=== PATIENT | female | born 1980 | race Caucasian/White ===

== ENCOUNTER → 2016-06-06 | Outpatient (CLI) | payer OTHER ==
[~2016-06-06] MED LIST: CHOL4POW4 PO; DOCU10CA PO; IBUP80TA PO; LABE10TAB PO; OXYC-208 PO; STUACAP PO
[2016-06-06 17:32] LABS: MAGNESIUM LEVEL 2.2 MG/DL (1.8-2.4)
== END ==
LOC: M WUC 12:20
PROVIDERS: ATTEND Internal Medicine Gastroenterology
DX: K21.9 Gastro-esophageal reflux disease without esophagitis (principal); E55.9 Vitamin D deficiency, unspecified; R07.89 Other chest pain

== ENCOUNTER → 2016-06-21 | Day surgery (SDC) | payer OTHER ==
[~2016-06-21] VITALS: Ht 165.1 cm; Wt 64.4 kg
[~2016-06-21] MED LIST changes: +ALBU17IN INH; +COLE1TAB PO; +CYCLOPENTOLATE 2% OPHTH SOLN As Ordered ONE; +IBUP800T23 PO; +IBUPROFEN 800 MG TAB PO SCH; +KETOROLAC 60 MG/2 ML VIAL (J1885) As Ordered ONE; +LIDOCAINE 2% INJ 100 MG/5 ML SDV (FOR ANES.) As Ordered ONE; +LR 1,000 ML IV SCH; +METOCLOPRAMIDE INJ 10MG/2ML VIAL (J2765) As Ordered ONE; +METOCLOPRAMIDE INJ 10MG/2ML VIAL (J2765) IV PRN; +MIDAZOLAM INJ 2 MG/2 ML VIAL (J2250) As Ordered ONE; +NEXI20CA PO; +OFLOXACIN 0.3 % (OCUFLOX) OPTH SOL 5ML As Ordered ONE; +ONDANSETRON 4MG/2ML VIAL (J2405) As Ordered ONE; +ONDANSETRON 4MG/2ML VIAL (J2405) IV PRN; +PHENYLEPHRINE 2.5% OPHTH SOL 2ML As Ordered ONE; +PROPOFOL 200 MG/20 ML VIAL As Ordered ONE; +RELP40TA PO; +TROPICAMIDE 1% OPHTH SOLN 2 ML As Ordered ONE; +VITA100037 PO; +dexameTHASONE 4 MG/ML 1ML VIAL (J1100) As Ordered ONE; +fentaNYL 100 MCG/2 ML INJECTION (J3010) As Ordered ONE; +fentaNYL 100 MCG/2 ML INJECTION (J3010) IV PRN
[2016-06-21 06:31] LABS: MEAN CORPUSCULAR HEMOGLOBIN 31.7 pg (27.0-33.0); MEAN CORPUSCULAR HGB CONC 35.1 g/dl (32.0-36.5); MEAN CORPUSCULAR VOLUME 90.3 fl (80.0-96.0); RED CELL DISTRIBUTION WIDTH 12.1 % (11.5-14.5); WHITE BLOOD COUNT 4.4 K/mm3 (4.0-10.0)
[2016-06-21 06:41] LABS: CONTROL LINE HCG INT CTR LINE PRESENT
[2016-06-21 09:45] VITALS: BP 145/91
--- NOTE | 2016-06-21 10:03 | RO ---
DATE OF PROCEDURE: 06/21/2016 Jagruti is a 35-year-old female with a history of menorrhagia. After counseling in the office, a decision was made for dilation and curettage (D and C), hysteroscopy, and a NovaSure ablation. PREOPERATIVE DIAGNOSIS: Menorrhagia. POSTOPERATIVE DIAGNOSIS: Menorrhagia. PROCEDURES: 1. D and C. 2. Hysteroscopy. 3. NovaSure endometrial ablation. ANESTHESIA: General. SURGEON: Luis Ku DO COMPLICATIONS: None. ESTIMATED BLOOD LOSS: Less than 50 mL. SPECIMEN SENT TO THE LABORATORY: Endometrial curettings. DESCRIPTION OF PROCEDURE: After obtaining informed consent, the patient was taken to the operating room, where under general anesthesia she was then draped and prepped in the usual sterile fashion. The bladder was performed for approximately 200 mL of clear urine. We then placed a weighted speculum in the posterior fornix of the vagina. Using a Stein retractor, the anterior lip of the cervix then grasped with a single-tooth tenaculum. The uterus was sounded to approximately 10 cm size, giving a cavity length of 6.5. The cervix was then serially dilated. The hysteroscope was inserted. Bilateral tubal ostia visualized. No evidence of friable fibroid noted. The hysteroscope was removed. A sharp curettage of the endometrial lining was then done. The NovaSure endometrial ablator was adjusted to 4.5. At this point, a cavity test was performed. After passing the cavity test, the endometrial ablation device was enabled, and the endometrial ablation process lasted approximately 1 minute. Good ablative process noted. The patient tolerated the procedure well. She was then transferred to recovery room in stable condition. EVERARDO
== END | disposition home or self-care (01) ==
LOC: M SDC 05:53
PROVIDERS: ATTEND Obstetrics & Gynecology
DX: N92.0 Excessive and frequent menstruation with regular cycle (principal); K21.9 Gastro-esophageal reflux disease without esophagitis; J45.909 Unspecified asthma, uncomplicated; Z88.0 Allergy status to penicillin; Z88.8 Allergy status to other drugs, medicaments and biological substances; Z79.899 Other long term (current) drug therapy
CPT/HCPCS: 36415; 58563; 84703; 85027; 86850; 86900; 86901; 88305; C2618; J1100; J1885; J2250; J2405; J2765; J3010

== ENCOUNTER → 2016-08-24 | Outpatient (CLI) | payer OTHER ==
[~2016-08-24] MED LIST changes: -CYCLOPENTOLATE 2% OPHTH SOLN As Ordered ONE; -IBUPROFEN 800 MG TAB PO SCH; -KETOROLAC 60 MG/2 ML VIAL (J1885) As Ordered ONE; -LIDOCAINE 2% INJ 100 MG/5 ML SDV (FOR ANES.) As Ordered ONE; -LR 1,000 ML IV SCH; -METOCLOPRAMIDE INJ 10MG/2ML VIAL (J2765) As Ordered ONE; -METOCLOPRAMIDE INJ 10MG/2ML VIAL (J2765) IV PRN; -MIDAZOLAM INJ 2 MG/2 ML VIAL (J2250) As Ordered ONE; -OFLOXACIN 0.3 % (OCUFLOX) OPTH SOL 5ML As Ordered ONE; -ONDANSETRON 4MG/2ML VIAL (J2405) As Ordered ONE; -ONDANSETRON 4MG/2ML VIAL (J2405) IV PRN; -PHENYLEPHRINE 2.5% OPHTH SOL 2ML As Ordered ONE; -PROPOFOL 200 MG/20 ML VIAL As Ordered ONE; -TROPICAMIDE 1% OPHTH SOLN 2 ML As Ordered ONE; -dexameTHASONE 4 MG/ML 1ML VIAL (J1100) As Ordered ONE; -fentaNYL 100 MCG/2 ML INJECTION (J3010) As Ordered ONE; -fentaNYL 100 MCG/2 ML INJECTION (J3010) IV PRN
[2016-08-24 12:45] LABS: BASO % 0.3 % (0.0-1.0); EOS # 0.1 K/mm3 (0.0-0.50); EOS % 1.9 % (0.0-3.0); LARGE UNSTAINED CELL # 0.1 K/mm3 (0.0-0.4); LYMPH # 1.3 K/mm3 (1.5-4.5); LYMPH % 26.5 % (24.0-44.0); MEAN CORPUSCULAR HEMOGLOBIN 29.9 pg (27.0-33.0); MEAN CORPUSCULAR HGB CONC 32.5 g/dl (32.0-36.5); MEAN CORPUSCULAR VOLUME 91.9 fl (80.0-96.0); MONO # 0.3 K/mm3 (0.0-0.8); MONO % 5.6 % (0.0-5.0); NEUTROPHILS % 63.7 % (36.0-66.0); PLATELET COUNT, AUTOMATED 182 k/mm3 (150-450); RED CELL DISTRIBUTION WIDTH 12.2 % (11.5-14.5); WHITE BLOOD COUNT 4.8 K/mm3 (4.0-10.0)
[2016-08-24 13:04] LABS: FOLATE 17.5 NG/ML
[2016-08-24 13:05] LABS: ALBUMIN 3.9 GM/DL (3.2-5.2); ALBUMIN/GLOBULIN RATIO 1.26 (1.00-1.93); ALKALINE PHOSPHATASE 103 U/L (45-117); ALT/SGPT 17 U/L (12-78); ANION GAP 7 MEQ/L (8-16); AST/SGOT 14 U/L (15-37); BILIRUBIN,TOTAL 0.6 MG/DL (0.2-1.0); BLOOD UREA NITROGEN 17 MG/DL (7-18); CALCIUM LEVEL 8.5 MG/DL (8.5-10.1); CARBON DIOXIDE LEVEL 23 MEQ/L (21-32); CHLORIDE LEVEL 109 MEQ/L (98-107); CHOLESTEROL LEVEL 149 MG/DL (<200); CREATININE FOR GFR 0.78 MG/DL (0.55-1.02); FREE T4 1.12 NG/DL (0.76-1.46); GLOMERULAR FILTRATION RATE > 60.0 (>60); GLUCOSE, FASTING 84 MG/DL (70-105); POTASSIUM SERUM 4.2 MEQ/L (3.5-5.1); SODIUM LEVEL 139 MEQ/L (136-145); TRIGLYCERIDES LEVEL 51 MG/DL (<150)
[2016-08-24 13:27] LABS: VITAMIN B12 LEVEL 628 PG/ML
== END ==
LOC: M WUC 08:37
PROVIDERS: ATTEND Emergency Medicine
DX: R63.5 Abnormal weight gain (principal); R53.83 Other fatigue; E04.9 Nontoxic goiter, unspecified

== ENCOUNTER → 2016-09-28 | Outpatient (REF) | payer OTHER | LOC: M LAB REF 16:44 | PROVIDERS: ATTEND Obstetrics & Gynecology | DX: N64.4 Mastodynia (principal) ==

== ENCOUNTER → 2016-11-23 | Outpatient (REF) | payer OTHER ==
[~2016-11-23] MED LIST changes: +CLIN150C14 PO; +IBUP1TAB7 PO; -IBUP800T23 PO; -VITA100037 PO; +VITA100067 PO
== END ==
LOC: M LAB REF 10:07
PROVIDERS: ATTEND Physician Assistant
DX: R30.0 Dysuria (principal)

== ENCOUNTER → 2016-12-27 | Outpatient (CLI) | payer OTHER | LOC: M WUC 12:24 | PROVIDERS: ATTEND Internal Medicine Gastroenterology | DX: E55.9 Vitamin D deficiency, unspecified (principal) ==

== ENCOUNTER 2017-02-11 17:33 | Emergency (ER) | payer OTHER ==
[~2017-02-11] VITALS: Ht 167.6 cm; Wt 67.3 kg
[~2017-02-11 17:33] MED LIST changes: -CLIN150C14 PO
[2017-02-11] MEDS ORDERED: CLIN150C14 PO ×2 (17:51→21:38)
[2017-02-11] MEDS ORDERED: ISOVUE-370 76% 100ML VIAL (Q9967) As Ordered ONE (19:46)
[2017-02-11 20:57] LABS: BASO % 0.3 % (0.0-1.0); EOS # 0.1 K/mm3 (0.0-0.50); EOS % 0.8 % (0.0-3.0); LARGE UNSTAINED CELL # 0.2 K/mm3 (0.0-0.4); LARGE UNSTAINED CELL % 2.1 % (0.0-4.0); LYMPH # 2.4 K/mm3 (1.5-4.5); LYMPH % 29.1 % (24.0-44.0); MEAN CORPUSCULAR HEMOGLOBIN 32.5 pg (27.0-33.0); MEAN CORPUSCULAR HGB CONC 35.6 g/dl (32.0-36.5); MEAN CORPUSCULAR VOLUME 91.3 fl (80.0-96.0); MONO # 0.4 K/mm3 (0.0-0.8); MONO % 5.3 % (0.0-5.0); NEUTROPHILS # 5.1 K/mm3 (1.8-7.7); NEUTROPHILS % 62.4 % (36.0-66.0); PLATELET COUNT, AUTOMATED 218 k/mm3 (150-450); RED CELL DISTRIBUTION WIDTH 12.1 % (11.5-14.5); WHITE BLOOD COUNT 8.1 K/mm3 (4.0-10.0)
--- NOTE | 2017-02-11 21:10 | REPUSA ---
HISTORY: RECENT LT ORAL SURGERY, R/O ODONTOGENIC INFECTION.. TECHNIQUE: Axial CT imaging of maxillofacial structures with sagittal and coronal reformatted imaging , with intravenous contrast enhancement. DLP= 454.7 mGy-cm. FINDINGS: There has been a tooth extraction of the left first molar tooth in the maxilla where there is soft tissue swelling and soft tissue gas consistent with postsurgical change and possible soft tis rogelio infection cannot be excluded at the surgical site. Clinical correlation is suggested. There is also 3 mm air-fluid level in the left maxillary sinus. There are multiple other tooth extractions from the mandible without acute bony abnormality identifie d in the mandible. No other facial bone abnormality is seen. No other soft tissue mass lesions or a bnormal fluid collections are seen. IMPRESSION: 1. There is soft tissue swelling with soft tissue emphysema seen at the site of dental e xtraction of the left first molar tooth from the maxilla and there is also 3 mm air-fluid level in th e left maxillary sinus in which infectious etiology cannot be excluded at this time. Clinical correl ation and follow-up may be warranted as clinically indicated. 2. No other acute facial bone abnormality is seen at this time.
[2017-02-11 21:52] VITALS: BP 120/81
== END 2017-02-11 21:58 | disposition home or self-care (01) ==
LOC: M ED 17:33
DX: J01.00 Acute maxillary sinusitis, unspecified (principal); K21.9 Gastro-esophageal reflux disease without esophagitis; Z90.49 Acquired absence of other specified parts of digestive tract
CPT/HCPCS: 36415; 70487; 85025; 85652; 86140; 87070; 99284; Q9967

== ENCOUNTER → 2018-03-13 | Outpatient (CLI) | payer OTHER | LOC: M ADAMS 18:14 | DX: M25.532 Pain in left wrist (principal) | CPT/HCPCS: 73110 ==

== ENCOUNTER → 2018-03-27 | Outpatient (REF) | payer OTHER ==
[2018-03-27 20:02] LABS: FOLATE 21.9 NG/ML; TOTAL 25(OH) VITAMIN D 26.4 NG/ML (30.0-100.0)
== END ==
LOC: M LAB REF 18:52
DX: R53.83 Other fatigue (principal)
CPT/HCPCS: 82746

== ENCOUNTER → 2018-03-28 | Outpatient (REF) | payer OTHER ==
[2018-03-28 19:24] LABS: BASO % 0.4 % (0.0-1.0); EOS # 0.1 10^3/uL (0.0-0.50); EOS % 1.4 % (0.0-3.0); HEMATOCRIT 39.9 % (36.0-47.0); HEMOGLOBIN 13.7 g/dl (12.0-15.5); LYMPH # 2.5 10^3/uL (1.5-4.5); LYMPH % 32.4 % (24.0-44.0); MEAN CORPUSCULAR HEMOGLOBIN 31.6 pg (27.0-33.0); MEAN CORPUSCULAR HGB CONC 34.3 g/dl (32.0-36.5); MEAN CORPUSCULAR VOLUME 92.1 fl (80.0-96.0); MONO # 0.7 10^3/uL (0.0-0.8); MONO % 8.7 % (0.0-5.0); NEUTROPHILS # 4.4 10^3/uL (1.8-7.7); NEUTROPHILS % 57.1 % (36.0-66.0); PLATELET COUNT, AUTOMATED 243 10^3/uL (150-450); RED BLOOD COUNT 4.33 10^6/uL (4.00-5.40); RED CELL DISTRIBUTION WIDTH 11.9 % (11.5-14.5); WHITE BLOOD COUNT 7.6 10^3/uL (4.0-10.0)
[2018-03-28 19:42] LABS: ALBUMIN/GLOBULIN RATIO 1.25 (1.00-1.93); ALKALINE PHOSPHATASE 127 U/L (45-117); ALT/SGPT 19 U/L (12-78); ANION GAP 6 MEQ/L (8-16); AST/SGOT 13 U/L (7-37); BILIRUBIN,TOTAL 0.3 MG/DL (0.2-1.0); BLOOD UREA NITROGEN 14 MG/DL (7-18); CALCIUM LEVEL 8.7 MG/DL (8.5-10.1); CARBON DIOXIDE LEVEL 27 MEQ/L (21-32); CHLORIDE LEVEL 106 MEQ/L (98-107); CHOLESTEROL LEVEL 144 MG/DL (<200); CHOLESTEROL RISK RATIO 2.526 (<5); CREATININE FOR GFR 0.72 MG/DL (0.55-1.30); GLOMERULAR FILTRATION RATE > 60.0 (>60); GLUCOSE, FASTING 83 MG/DL (70-100); HDL CHOLESTEROL 57 MG/DL (>40); LDL CHOLESTEROL 65 MG/DL (<100); MAGNESIUM LEVEL 2.2 MG/DL (1.8-2.4); NON-HDL-C 87 MG/DL; POTASSIUM SERUM 4.1 MEQ/L (3.5-5.1); SODIUM LEVEL 139 MEQ/L (136-145); THYROID STIMULATING HORMONE 0.815 uIU/ML (0.358-3.740); TOTAL PROTEIN 7.2 GM/DL (6.4-8.2); TRIGLYCERIDES LEVEL 112 MG/DL (<150)
== END ==
LOC: M LABDRWAD 19:15
DX: R53.83 Other fatigue (principal)

== ENCOUNTER → 2018-06-03 | Outpatient (REF) | payer OTHER ==
[~2018-06-03] MED LIST changes: +CLIN150C14 PO
== END ==
LOC: M LAB REF 12:20
PROVIDERS: ATTEND Physician Assistant
DX: J02.9 Acute pharyngitis, unspecified (principal)

== ENCOUNTER → 2018-06-27 | Outpatient (CLI) | payer OTHER ==
[2018-06-27 14:18] LABS: C REACTIVE PROTEIN QUANTITATIV < 0.30 MG/DL (0.00-0.30); RHEUMATOID FACTOR QUANT < 10.0 IU/ML (<15.0)
[2018-06-29 14:27] LABS: ANTINUCLEAR ANTIBODIES DIRECT Negative (Negative); Lyme Disease IgG/IgM Antibodie <0.91 ISR (0.00-0.90); Lyme Disease IgM Ab Quantitati <0.80 index (0.00-0.79)
== END ==
LOC: M WUC 12:15
PROVIDERS: ATTEND Physician Assistant
DX: G89.4 Chronic pain syndrome (principal)

== ENCOUNTER → 2018-07-12 | Outpatient (CLI) | payer OTHER ==
[2018-07-12 14:47] LABS: FREE T4 1.09 NG/DL (0.76-1.46); THYROID STIMULATING HORMONE 0.841 uIU/ML (0.358-3.740)
[2018-07-12 14:49] LABS: FOLATE 12.9 NG/ML
[2018-07-12 15:14] LABS: HEMOGLOBIN A1c 5.1 %
== END ==
LOC: M WUC 12:18
PROVIDERS: ATTEND Psychiatry & Neurology Neurology
DX: G70.00 Myasthenia gravis without (acute) exacerbation (principal); R20.2 Paresthesia of skin; M62.81 Muscle weakness (generalized); E07.9 Disorder of thyroid, unspecified

== ENCOUNTER → 2018-07-12 | Outpatient (CLI) | payer OTHER ==
[2018-07-12 14:38] LABS: BLOOD UREA NITROGEN 15 MG/DL (7-18); CALCIUM LEVEL 8.6 MG/DL (8.5-10.1); CARBON DIOXIDE LEVEL 29 MEQ/L (21-32); CHLORIDE LEVEL 103 MEQ/L (98-107); CREATININE FOR GFR 0.73 MG/DL (0.55-1.30); GLOMERULAR FILTRATION RATE > 60.0 (>60); GLUCOSE, FASTING 66 MG/DL (70-100); MAGNESIUM LEVEL 2.2 MG/DL (1.8-2.4); POTASSIUM SERUM 4.3 MEQ/L (3.5-5.1); SODIUM LEVEL 138 MEQ/L (136-145)
[2018-07-12 14:49] LABS: TOTAL 25(OH) VITAMIN D 30.6 NG/ML (30.0-100.0); VITAMIN B12 LEVEL 1199 PG/ML (247-911)
== END ==
LOC: M WUC 12:12
PROVIDERS: ATTEND Internal Medicine Gastroenterology
DX: R19.7 Diarrhea, unspecified (principal); K58.0 Irritable bowel syndrome with diarrhea; K90.41 Non-celiac gluten sensitivity; K44.9 Diaphragmatic hernia without obstruction or gangrene; E55.9 Vitamin D deficiency, unspecified

== ENCOUNTER → 2018-09-26 | Outpatient (CLI) | payer OTHER ==
--- NOTE | 2018-09-26 16:24 | REP ---
MAXILLOFACIAL CT WITHOUT CONTRAST: HISTORY: Chronic maxillary sinusitis. Minimal mucosal thickening is present in the left maxillary sinus. The remaining sinuses are clear. The ostiomeatal units are patent. The middle and inferior nasal turbinates are partially paradoxical. There is mild deviation of the nasal septum to the left. A spur is present arising from the left side of the nasal septum. The spur abuts the left middle nasal turbinate. The cribriform plate, medial beltran of the orbits and optic canals are intact. The carotid canals form a segment of the posterolateral beltran of the sphenoid sinus. The sphenoid sinus septa insert into the internal carotid canal beltran. IMPRESSION: Sinus mucosal thickening as described above. Electronically Signed by Harpal Dean MD 09/26/2018 04:34 P
== END ==
LOC: M RAD 15:38
PROVIDERS: ATTEND Otolaryngology
DX: J34.89 Other specified disorders of nose and nasal sinuses (principal)

== ENCOUNTER → 2018-12-27 | Outpatient (REF) | payer OTHER ==
[2018-12-27 12:59] LABS: HEMOGLOBIN A1c 5.4 %
[2018-12-27 13:12] LABS: ALBUMIN 3.9 GM/DL (3.2-5.2); ALT/SGPT 22 U/L (12-78); BILIRUBIN,TOTAL 0.7 MG/DL (0.2-1.0); BLOOD UREA NITROGEN 15 MG/DL (7-18); CALCIUM LEVEL 8.9 MG/DL (8.5-10.1); CARBON DIOXIDE LEVEL 27 MEQ/L (21-32); CHLORIDE LEVEL 105 MEQ/L (98-107); CREATININE FOR GFR 0.77 MG/DL (0.55-1.30); GLOMERULAR FILTRATION RATE > 60.0 (>60); GLUCOSE, FASTING 77 MG/DL (70-100); POTASSIUM SERUM 4.5 MEQ/L (3.5-5.1); SODIUM LEVEL 138 MEQ/L (136-145); TOTAL PROTEIN 7.3 GM/DL (6.4-8.2)
== END ==
LOC: M LABDRAW1 08:23
PROVIDERS: ATTEND Physician Assistant
DX: R42 Dizziness and giddiness (principal)

== ENCOUNTER 2019-02-20 11:00 | Day surgery (SDC) | payer OTHER ==
[~2019-02-20] VITALS: Ht 165.1 cm; Wt 65.8 kg
[~2019-02-20 11:00] MED LIST changes: +CHOL100029 PO; +LR 1,000 ML IV ONE; +VENTAER INH; +dexameTHASONE 4 MG/ML 1ML VIAL (J1100) IV ONE
[2019-02-20] MEDS ORDERED: LIDOCAINE W/EPINEPHRINE 1% 20ML VIAL As Ordered ONE ×2 (13:47→13:48)
[2019-02-20] MEDS ORDERED: EPINEPHrine 1MG/ML INJ 30ML MD-VIAL As Ordered ONE (13:48)
[2019-02-20] MEDS ORDERED: SCOPOLAMINE 1MG TRANSDERMAL PATCH As Ordered ONE (14:06)
[2019-02-20] MEDS ORDERED: SODIUM CHLORIDE 0.9% NASAL GEL 15GM (AYR) As Ordered ONE (14:25)
[2019-02-20] MEDS ORDERED: METOCLOPRAMIDE INJ 10MG/2ML VIAL (J2765) As Ordered ONE (14:44)
[2019-02-20] MEDS ORDERED: MIDAZOLAM INJ 2 MG/2 ML VIAL (J2250) As Ordered ONE (14:44)
[2019-02-20] MEDS ORDERED: LIDOCAINE 2% INJ 100 MG/5 ML SDV (FOR ANES.) As Ordered ONE (14:44)
[2019-02-20] MEDS ORDERED: fentaNYL 250 MCG/5 ML INJECTION (J3010) As Ordered ONE (14:44)
[2019-02-20] MEDS ORDERED: SUGAMMADEX SODIUM 500 MG/5 ML VIAL (BRIDION) As Ordered ONE (14:44)
[2019-02-20] MEDS ORDERED: ONDANSETRON 4MG/2ML VIAL (J2405) As Ordered ONE (14:44)
[2019-02-20] MEDS ORDERED: ePHEDrine SULFATE 25 MG/5 ML(5MG/ML) SYRINGE As Ordered ONE (14:44)
[2019-02-20] MEDS ORDERED: ROCURONIUM BROMIDE 50 MG/5 ML VIAL As Ordered ONE (14:44)
[2019-02-20] MEDS ORDERED: dexameTHASONE 4 MG/ML 1ML VIAL (J1100) As Ordered ONE (14:44)
[2019-02-20] MEDS ORDERED: PROPOFOL 200 MG/20 ML VIAL As Ordered ONE (14:44)
[2019-02-20] MEDS: METHYLENE BLUE 0.5% (5MG/ML) 10 ML AMP (PROVAYBLUE)(Q9968 PER 1MG) As Ordered ONE ×2 (14:45→15:15)
[2019-02-20] MEDS ORDERED: SCOPOLAMINE 1MG TRANSDERMAL PATCH TOP ONE (15:00)
[2019-02-20] MEDS ORDERED: ONDANSETRON 4MG/2ML VIAL (J2405) IV PRN (16:00)
[2019-02-20] MEDS ORDERED: HYDROMORPHONE HCL 0.5 MG/ 0.5 ML SYRINGE (J1170 PER 1) IV PRN (16:00)
[2019-02-20] MEDS ORDERED: oxyCODONE 5MG TAB PO PRN (16:00)
[2019-02-20] MEDS ORDERED: fentaNYL 100 MCG/2 ML INJECTION (J3010) IV PRN (16:00)
[2019-02-20] MEDS ORDERED: PROMETHAZINE INJ 25 MG/ML VIAL (J2550) IV PRN (16:00)
[2019-02-20] MEDS ORDERED: METOCLOPRAMIDE INJ 10MG/2ML VIAL (J2765) IV PRN (16:00)
[2019-02-20 17:00] VITALS: BP 133/84
== END 2019-02-20 17:11 | disposition home or self-care (01) ==
LOC: M SDC 11:00
PROVIDERS: ATTEND Otolaryngology
DX: J34.2 Deviated nasal septum (principal); K21.9 Gastro-esophageal reflux disease without esophagitis; J45.909 Unspecified asthma, uncomplicated; G43.909 Migraine, unspecified, not intractable, without status migrainosus; Z79.51 Long term (current) use of inhaled steroids; Z79.899 Other long term (current) drug therapy; Z88.0 Allergy status to penicillin; Z88.8 Allergy status to other drugs, medicaments and biological substances
CPT/HCPCS: 30520; 88300; J1100; J2250; J2405; J2765; J3010; Q9968

== ENCOUNTER → 2019-08-19 | Outpatient (CLI) | payer OTHER ==
[~2019-08-19] MED LIST changes: -LR 1,000 ML IV ONE; -dexameTHASONE 4 MG/ML 1ML VIAL (J1100) IV ONE
[2019-08-19 12:12] LABS: INFLUENZA A AMPLIFICATION NEGATIVE (NEGATIVE); INFLUENZA B AMPLIFICATION NEGATIVE (NEGATIVE)
== END ==
LOC: M LABSMTC 10:40
PROVIDERS: ATTEND Family Medicine
DX: Z11.59 Encounter for screening for other viral diseases (principal); Z20.828 Contact with and (suspected) exposure to other viral communicable diseases
CPT/HCPCS: 87502; U0002

== ENCOUNTER → 2020-03-29 | Outpatient (CLI) | payer OTHER ==
--- NOTE | 2020-03-29 14:18 | REP ---
INDICATION: CHRONIC MAX SINUSITIS, PRIOR SEPTOPLASTY WITH BRAIN LAB. COMPARISON: Comparison maxillofacial CT study September 26, 2018.. TECHNIQUE: Helical scanning is acquired and 2 mm axial images re-formatted. Coronal MPR images are generated and reviewed. FINDINGS: There are air-fluid levels in the maxillary sinuses bilaterally, right a little larger than left. There is mucosal thickening inferiorly in the maxillary sinus on the right and to a lesser extent on the left. The mucosal thickening is new and the air-fluid level was only present on the left previously. There is partial opacification of the ethmoid air cells bilaterally which also is new compared to the prior study. Frontal sinuses are clear. Sphenoid sinuses demonstrate minimal mucosal thickening today on the left. Mastoid aeration is normal and symmetric. Bony sinus margins are intact. The bony nasal septum is midline. No nasal polyp is seen. There is mucosal thickening obscuring the ostium and infundibulum of the left OMC. The right OMC is patent although there is a tiny amount of mucosal thickening in the infundibulum and ostium. IMPRESSION: Paranasal sinus mucosal changes as above. Maxillary and ethmoid air cell involvement. The left OMC is obscured by mucosal thickening. <Electronically signed by Aram Mei > 03/29/20 [id number]
== END ==
LOC: M RAD 13:10
PROVIDERS: ATTEND Otolaryngology
DX: J32.0 Chronic maxillary sinusitis (principal)

== ENCOUNTER → 2020-04-20 | Outpatient (CLI) | payer OTHER ==
--- NOTE | 2020-04-20 10:31 | REP ---
INDICATION: GERD COMPARISON: None. TECHNIQUE: Real time marx scale ultrasound examination using curved array transducer along with limited color Doppler evaluation of the portal vein. FINDINGS: Liver is normal in contour, size, and echogenicity without focal hepatic lesions identified. Doppler interrogation demonstrates normal main portal vein characteristics including normal flow direction, wave pattern, and velocity at 31 cm/sec. Pancreas is incompletely evaluated due to interposed bowel gas. The gallbladder is surgically absent. No biliary ductal dilatation is appreciated and the common bile duct measures 4.0 mm diameter. Right kidney is normal in reniform shape without hydronephrosis and measures 9.8 x 5.3 x 3.6 cm. No ascites in the visualized right upper quadrant. IMPRESSION: Essentially normal right upper quadrant/liver ultrasound. Evidence for prior cholecystectomy. <Electronically signed by Betito Wang > 04/20/20 [id number]
== END ==
LOC: M RAD 09:44
PROVIDERS: ATTEND Nurse Practitioner Family
DX: K21.9 Gastro-esophageal reflux disease without esophagitis (principal); K44.9 Diaphragmatic hernia without obstruction or gangrene

== ENCOUNTER → 2020-06-23 | Outpatient (REF) | payer OTHER ==
[~2020-06-23] MED LIST changes: -CLIN150C14 PO; +CLIN150C15 PO
[2020-06-23 14:30] LABS: INR 0.92; PROTHROMBIN TIME 12.6 SECONDS (12.5-14.3)
[2020-06-23 14:31] LABS: PARTIAL THROMBOPLASTIN TIME 31.7 SECONDS (24.2-38.5)
[2020-06-23 14:58] LABS: ALBUMIN 4.2 GM/DL (3.2-5.2); ALT/SGPT 28 U/L (12-78); BILIRUBIN,DIRECT 0.1 MG/DL (0.0-0.2); BILIRUBIN,TOTAL 0.4 MG/DL (0.2-1.0); FERRITIN 52 NG/ML (8-252); IRON (FE) 86 UG/DL (50-170); PERCENT SATURATION 31.4 % (13.2-45.0); THYROID STIMULATING HORMONE 0.802 uIU/ML (0.358-3.740); TOTAL IRON BINDING CAPACITY 274 UG/DL (250-450); TOTAL PROTEIN 7.2 GM/DL (6.4-8.2)
[2020-06-23 15:06] LABS: HEPATITIS B SURFACE ANTIBODY NEGATIVE (POSITIVE)
[2020-06-23 15:16] LABS: HEPATITIS B SURFACE ANTIGEN NEGATIVE (NEGATIVE)
[2020-06-23 15:43] LABS: HEPATITIS C VIRUS ABY INDEX < 0.0 INDEX (<0.8)
[2020-06-23 15:45] LABS: HEPATITIS A ANTIBODY IGM NEGATIVE (NEGATIVE)
[2020-06-24 18:09] LABS: ALPHA 1 ANTITRYPSIN 134 mg/dL (100-188); ANTI-SMOOTH MUSCLE ANTIBODY 10 Units (0-19); ANTINUCLEAR ANTIBODIES DIRECT Negative (Negative); CERULOPLASMIN 25.9 mg/dL (19.0-39.0); ENDOMYSIAL ABY IgA Negative (Negative); HEPATITIS A IgG TOTAL Positive (Negative); LIVER-KIDNEY MICROSOMAL ABY <20.1 Units (0.0-20.0); TISSUE TRANSGLUTAMINASE IgA <2 U/mL (0-3)
[2020-06-30 12:05] LABS: ALBUMIN 4.53 GM/DL (3.29-5.55); ALBUMIN % 62.9 % (55.8-66.1); ALPHA-1-GLOBULIN % 3.8 % (2.9-4.9); ALPHA-1-GLOBULINS 0.27 GM/DL (0.17-0.41); ALPHA-2-GLOBULINS % 8.4 % (7.1-11.8); BETA-1-GLOBULINS 0.42 GM/DL (0.28-0.60); BETA-1-GLOBULINS % 5.8 % (4.7-7.2); BETA-2-GLOBULINS 0.29 GM/DL (0.19-0.55); GAMMA GLOBULIN % 15.1 % (11.1-18.8); GAMMA GLOBULINS 1.09 GM/DL (0.65-1.58)
== END ==
LOC: M LAB REF 13:08
PROVIDERS: ATTEND Nurse Practitioner Family
DX: K44.9 Diaphragmatic hernia without obstruction or gangrene (principal); K21.9 Gastro-esophageal reflux disease without esophagitis; R19.7 Diarrhea, unspecified; R74.8 Abnormal levels of other serum enzymes

== ENCOUNTER → 2022-03-30 | Outpatient (CLI) | payer OTHER ==
[~2022-03-30] MED LIST changes: +CHOL4POW26 PO; -CHOL4POW4 PO; -CLIN150C15 PO; +CLIN150C17 PO
[2022-03-30 15:51] LABS: BASO % 0.3 % (0.0-1.0); EOS # 0.1 10^3/uL (0.0-0.5); EOS % 1.9 % (0.0-3.0); HEMATOCRIT 44.5 % (36.0-47.0); HEMOGLOBIN 14.5 g/dl (12.0-15.5); LYMPH # 1.6 10^3/uL (1.5-5.0); LYMPH % 21.6 % (24.0-44.0); MEAN CORPUSCULAR HEMOGLOBIN 30.7 pg (27.0-33.0); MEAN CORPUSCULAR HGB CONC 32.6 g/dl (32.0-36.5); MEAN CORPUSCULAR VOLUME 94.1 fl (80.0-96.0); MONO # 0.7 10^3/uL (0.0-0.8); MONO % 9.1 % (2.0-8.0); NEUTROPHILS # 4.9 10^3/uL (1.5-8.5); NEUTROPHILS % 66.8 % (36.0-66.0); PLATELET COUNT, AUTOMATED 191 10^3/uL (150-450); RED BLOOD COUNT 4.73 10^6/uL (4.00-5.40); WHITE BLOOD COUNT 7.4 10^3/uL (4.0-10.0)
[2022-03-30 16:36] LABS: PERCENT SATURATION 12.8 % (13.2-45.0)
== END ==
LOC: M PLALAB 13:35
PROVIDERS: ATTEND Nurse Practitioner Family
DX: R53.83 Other fatigue (principal)

== ENCOUNTER → 2022-06-22 | Outpatient (CLI) | payer OTHER ==
[2022-06-22 16:18] LABS: MAGNESIUM LEVEL 1.9 MG/DL (1.8-2.4)
== END ==
LOC: M PLALAB 14:01
PROVIDERS: ATTEND Internal Medicine Gastroenterology
DX: E55.9 Vitamin D deficiency, unspecified (principal); R10.13 Epigastric pain; R13.10 Dysphagia, unspecified; R19.7 Diarrhea, unspecified

== ENCOUNTER → 2022-11-14 | Outpatient (CLI) | payer OTHER | LOC: M WHC 15:11 | PROVIDERS: ATTEND Obstetrics & Gynecology | DX: Z12.31 Encounter for screening mammogram for malignant neoplasm of breast (principal) ==

== ENCOUNTER → 2023-01-30 | Outpatient (CLI) | payer OTHER ==
[2023-01-30 16:34] LABS: BASO % 0.4 % (0.0-1.0); EOS # 0.1 10^3/uL (0.0-0.5); EOS % 1.4 % (0.0-3.0); HEMATOCRIT 41.6 % (36.0-47.0); HEMOGLOBIN 13.9 g/dl (12.0-15.5); LYMPH # 1.7 10^3/uL (1.5-5.0); LYMPH % 24.5 % (24.0-44.0); MEAN CORPUSCULAR HEMOGLOBIN 30.8 pg (27.0-33.0); MEAN CORPUSCULAR HGB CONC 33.4 g/dl (32.0-36.5); MEAN CORPUSCULAR VOLUME 92.2 fl (80.0-96.0); MONO # 0.5 10^3/uL (0.0-0.8); MONO % 6.5 % (2.0-8.0); NEUTROPHILS # 4.6 10^3/uL (1.5-8.5); NEUTROPHILS % 66.8 % (36.0-66.0); PLATELET COUNT, AUTOMATED 225 10^3/uL (150-450); RED BLOOD COUNT 4.51 10^6/uL (4.00-5.40); WHITE BLOOD COUNT 6.9 10^3/uL (4.0-10.0)
[2023-01-30 16:59] LABS: ALKALINE PHOSPHATASE 138 U/L (46-116); ALT/SGPT 20 U/L (7.0-40); AST/SGOT 14 U/L (<34); BILIRUBIN,TOTAL 0.4 MG/DL (0.3-1.2); BLOOD UREA NITROGEN 15 MG/DL (9-23); CALCIUM LEVEL 8.9 MG/DL (8.5-10.1); CARBON DIOXIDE LEVEL 26 MMOL/L (20-31); CHLORIDE LEVEL 107 MMOL/L (98-107); CHOLESTEROL LEVEL 177 MG/DL (<200); CHOLESTEROL RISK RATIO 2.62 (<5); CREATININE FOR GFR 0.76 MG/DL (0.55-1.30); GLOMERULAR FILTRATION RATE > 60.0 (>58); GLUCOSE, FASTING 87 MG/DL (60-100); HDL CHOLESTEROL 67.4 MG/DL (>40); IRON (FE) 94 UG/DL (50-170); LDL CHOLESTEROL 69.6 MG/DL (<100); NON-HDL-C 109.6 MG/DL; PERCENT SATURATION 33.6 % (13.2-45.0); POTASSIUM SERUM 3.9 MMOL/L (3.5-5.1); SODIUM LEVEL 141 MMOL/L (136-145); TOTAL IRON BINDING CAPACITY 280 UG/DL (250-425); TOTAL PROTEIN 7.1 G/DL (5.7-8.2); TRIGLYCERIDES LEVEL 200 MG/DL (<150)
[2023-01-30 17:01] LABS: FERRITIN 67.6 NG/ML (7.3-270.7)
== END ==
LOC: M LAB 15:56
PROVIDERS: ATTEND Nurse Practitioner Family
DX: Z00.00 Encounter for general adult medical examination without abnormal findings (principal); E61.1 Iron deficiency

== ENCOUNTER → 2024-04-23 | Outpatient (CLI) | payer OTHER ==
[~2024-04-23] MED LIST changes: +ISOVUE-370 76% 100ML VIAL As Ordered ONE
[2024-04-23 09:24] LABS: BASO % 0.4 % (0.0-1.0); EOS % 0.8 % (0.0-3.0); HEMATOCRIT 45.1 % (36.0-47.0); HEMOGLOBIN 15.3 g/dl (12.0-15.5); LYMPH # 1.3 10^3/uL (1.5-5.0); LYMPH % 24.9 % (24.0-44.0); MEAN CORPUSCULAR HEMOGLOBIN 31.2 pg (27.0-33.0); MEAN CORPUSCULAR HGB CONC 33.9 g/dl (32.0-36.5); MONO # 0.3 10^3/uL (0.0-0.8); MONO % 5.3 % (2.0-8.0); NEUTROPHILS # 3.5 10^3/uL (1.5-8.5); NEUTROPHILS % 68.2 % (36.0-66.0); PLATELET COUNT, AUTOMATED 244 10^3/uL (150-450); WHITE BLOOD COUNT 5.1 10^3/uL (4.0-10.0)
[2024-04-23 09:49] LABS: ALBUMIN 4.3 G/DL (3.2-5.2); ALKALINE PHOSPHATASE 147 U/L (35-104); ALT/SGPT 16 U/L (7.0-40); AST/SGOT 12 U/L (<34); BILIRUBIN,TOTAL 0.7 MG/DL (0.3-1.2); BLOOD UREA NITROGEN 14 MG/DL (9-23); CALCIUM LEVEL 9.9 MG/DL (8.5-10.1); CARBON DIOXIDE LEVEL 26 MMOL/L (20-31); CHLORIDE LEVEL 105 MMOL/L (98-107); CREATININE FOR GFR 0.73 MG/DL (0.55-1.30); GLOMERULAR FILTRATION RATE > 60.0 (>58); GLUCOSE, FASTING 85 MG/DL (60-100); SODIUM LEVEL 140 MMOL/L (136-145)
== END ==
LOC: M RAD 08:41
PROVIDERS: ATTEND Nurse Practitioner Family
DX: K42.9 Umbilical hernia without obstruction or gangrene (principal)
CPT/HCPCS: 36415; 74177; 80053; 85025; Q9967

== ENCOUNTER → 2024-10-01 | Outpatient (CLI) | payer OTHER ==
[~2024-10-01] MED LIST changes: -ISOVUE-370 76% 100ML VIAL As Ordered ONE
== END ==
LOC: M RAD 11:18
PROVIDERS: ATTEND Otolaryngology
DX: J32.3 Chronic sphenoidal sinusitis (principal)